=== PATIENT | female | born 1970 | race Hispanic/Latino ===

== ENCOUNTER 2019-11-08 14:36 | Emergency (ER) | payer SELFPAY ==
[~2019-11-08] VITALS: Ht 167.6 cm; Wt 90.7 kg
--- OUTSIDE RECORDS SUMMARY | 2019-11-08 14:38 | XMS REPORT | Continuity of Care Document ---
Author Author [facility] Organization [facility] Address [address] [place] [address] Phone Unavailable Care Team Providers Care Medical Reviewer Name Role Phone Unavailable Unavailable Payers Payer Name Policy Type Policy Number Effective Date Expiration Date S ource Problems This patient has no known problems. Allergies, Adverse Reactions, Alerts Allergy Name Allergy Type Status Severity Reaction(s) Onset Date Inacti ve Date Treating Clinician Comments Source No Known Allergies DA Active U 2019-04-09 00:00:00 [facility] No Known Allergies DA Active U 2017-09-30 00:00:00 [facility] Medications This patient has no known medications. Procedures This patient has no known procedures. Results This patient has no known results.
--- NOTE | 2019-11-08 14:39 | Emergency Department Note ---
History of Present Illnes History of Present Illness History of Present Illness This is a 48 year old female fever, sore throat, and diarrheal illness of 3 days duration . 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 Any updates have been documented here. Past Medical History Recent Fever: Yes Clinical Suspicion of Infectio: Yes New/Unexplained Change in Ment: No Social History Smoking Cessation: Never Smoker Alcohol Use: None Any Illegal Drug Use: No Other Last Tetanus: UTD Review of Systems Review of Systems Constitutional: Reports fever EENTM: Reports throat pain Cardiovascular: Reports no symptoms Respiratory: Reports no symptoms Gastrointestinal: Reports no symptoms Genitourinary: Reports no symptoms Musculoskeletal: Reports no symptoms Integumentary: Reports no symptoms Neurological: Reports headache Psychological: Reports no symptoms Endocrine: Reports no symptoms Hematological/Lymphatic: Reports no symptoms Physical Exam Related Data Allergies: Coded Allergies: No Known Allergies (Unverified , 12/01/12) Physical Exam CONSTITUTIONAL Constitutional: Present well-developed, Present well-nourished HENT HENT: Present normocephalic, Present atraumatic, Present oropharynx clear/moist, Present nose normal, Present tonsillar excudate (right); Absent pharynx abnormal, Absent erythema HENT L/R: Present left ext ear normal, Present right ext ear normal EYES Eyes: Reports PERRL, Reports conjunctivae normal NECK Neck: Present ROM normal PULMONARY Pulmonary: Present effort normal, Present breath sounds normal CARDIOVASCULAR Cardiovascular: Present regular rhythm, Present heart sounds normal, Present capillary refill normal, Present normal rate GASTROINTESTINAL Abdominal: Present soft, Present nontender, Present bowel sounds normal GENITOURINARY Genitourinary: Present exam deferred SKIN Skin: Present warm, Present dry MUSCULOSKELETAL Musculoskeletal: Present ROM normal NEUROLOGICAL Neurological: Present alert, Present oriented x 3, Present no gross motor or sensory deficits PSYCHOLOGICAL Psychological: Present mood/affect normal, Present judgement normal Results Laboratory Lab results reviewed: Yes Laboratory comments Rapid Strep Neg rapid Flu Neg Imaging Imaging results reviewed: Yes Impressions [place] [address] Patient Name: MADDIE HORNER MR #: [id number] : 1970 Age/Sex: 48/F Req #: [id number] Adm Physician: Ordered by: DENISE NAVARRO DO Report #: [id number] Location: ER Room/Bed: Procedure: [id number] DX/CHEST SINGLE (PORTABLE) Exam Date: 11/08/19 Exam Time: 1639 REPORT STATUS: Signed EXAMINATION: CHEST SINGLE (PORTABLE) INDICATION: ^Y ^fever ^[id number] ^1640 COMPARISON: None FINDINGS: AP view TUBES and LINES: None. LUNGS: Lungs are well inflated. Mild bilateral hilar interstitial lung markings. No lobar consolidations. PLEURA: No pleural effusion or pneumothorax. HEART AND MEDIASTINUM: The cardiomediastinal silhouette is unremarkable.. BONES AND SOFT TISSUES: No acute osseous lesion. Soft tissues are unremarkable. UPPER ABDOMEN: No free air under the diaphragm. IMPRESSION: Nonspecific bilateral hilar interstitial lung markings may reflect early atypical infection. Continue to follow-up. Signed by: Dr. Saloni Berkowitz M.D. on 11/08/2019 6:02 PM Dictated By: SALONI BERKOWITZ MD 01 Transcribed By: NEL on 11/08/191801 COPY TO: DENISE NAVARRO DO~ Assessment & Plan Medical Decision Making MDM Patient with URI symptoms. Vital signs stable. Flu, Strep negative. CXR suggestive of URI. Rx azithromycin and albuterol Assessment & Plan Final Impression: (1) URI (upper respiratory infection) Depart Disposition: HOME, SELF-nursing home Meds No Active Prescriptions or Reported Meds DENISE NAVARRO DO Nov 08, 2019 14:39
[2019-11-08] MEDS ORDERED: ACETAMINOPHEN 325 MG TAB PO STA ×2 (14:45)
[2019-11-08] MEDS ORDERED: KETOROLAC TROMETHAMINE 60 MG/2 ML VIAL IM ONE (15:00)
[2019-11-08 15:25] LABS: STREPTOCOCCUS GRP A ANTIGEN NEGATIVE (NEGATIVE)
[2019-11-08 15:34] LABS: INFLUENZAE A&B ANTIGEN (RAPID) NEGATIVE (NEGATIVE)
[2019-11-08 17:12] VITALS: BP 142/88
--- NOTE | 2019-11-08 18:05 | Diagnostic Imaging Report ---
EXAMINATION: CHEST SINGLE (PORTABLE) INDICATION: ^Y ^fever ^[id number] ^1640 COMPARISON: None FINDINGS: AP view TUBES and LINES: None. LUNGS: Lungs are well inflated. Mild bilateral hilar interstitial lung markings. No lobar consolidations. PLEURA: No pleural effusion or pneumothorax. HEART AND MEDIASTINUM: The cardiomediastinal silhouette is unremarkable.. BONES AND SOFT TISSUES: No acute osseous lesion. Soft tissues are unremarkable. UPPER ABDOMEN: No free air under the diaphragm. IMPRESSION: Nonspecific bilateral hilar interstitial lung markings may reflect early atypical infection. Continue to follow-up. Signed by: Dr. Nevaeh Walker M.D. on 11/08/2019 6:02 PM
== END 2019-11-08 17:13 | disposition home or self-care (01) ==
LOC: ER 14:36
DX: R50.9 Fever, unspecified (principal); J06.9 Acute upper respiratory infection, unspecified; F41.9 Anxiety disorder, unspecified
CPT/HCPCS: 71045; 83518; 87070; 87400; 99283

== ENCOUNTER 2020-04-12 09:29 | Emergency (ER) | payer SELFPAY ==
[~2020-04-12] VITALS: Ht 167.6 cm; Wt 90.7 kg
== END 2020-04-12 09:54 | disposition home or self-care (01) ==
LOC: ER 09:42
DX: B34.9 Viral infection, unspecified (principal); F41.9 Anxiety disorder, unspecified
CPT/HCPCS: 99282

== ENCOUNTER 2022-08-27 07:52 | Emergency (ER) | payer OTHER ==
[~2022-08-27] VITALS: Ht 167.6 cm; Wt 90.7 kg
[2022-08-27] MEDS ORDERED: ASPIRIN 81 MG CHEW TAB PO ONE (08:15)
[2022-08-27 08:18] LABS: BASOPHILS # (AUTO) 0.1 (0.0-0.1); BASOPHILS % 1.1 % (0.0-1.0); EOSINOPHILS # (AUTO) 0.4 (0.0-0.4); EOSINOPHILS % 5.3 % (0.0-6.0); HEMATOCRIT 46.9 % (34.2-44.1); LYMPHOCYTES % 36.9 % (18.0-39.1); MEAN CORPUSCULAR HEMOGLOBIN 27.8 pg (28-32); MONOCYTES # (AUTO) 0.8 (0.2-0.8); MONOCYTES % 9.6 % (4.4-11.3); NEUTROPHILS # (AUTO) 3.7 (2.1-6.9); NEUTROPHILS % 46.8 % (38.7-80.0); PLATELET COUNT 236 x10e3/uL (140-360); RED BLOOD COUNT 5.39 x10e6/uL (3.6-5.1); RED CELL DISTRIBUTION WIDTH 13.5 % (11.7-14.4)
[2022-08-27 09:10] LABS: ANION GAP 16.9 mmol/L (8-16); CALCIUM 9.1 mg/dL (8.4-10.2); CREATININE, SERUM 0.86 mg/dL (0.57-1.11); POTASSIUM 4.9 mmol/L (3.5-5.1)
[2022-08-27 09:17] LABS: CREATINE KINASE MB 2.8 ng/mL (0-5.0)
[2022-08-27 09:41] LABS: CLARITY,URINE SL CLOUDY (CLEAR); COLOR,URINE YELLOW (YELLOW); KETONES,URINE NEGATIVE (NEGATIVE); LEUKOCYTE ESTERASE ,URINE NEGATIVE (NEGATIVE); NITRITE,URINE NEGATIVE (NEGATIVE); PROTEIN,URINE DIPSTICK 1+ (NEGATIVE); URINE UROBILINOGEN 0.2 mg/dL (0.2 - 1)
[2022-08-27 09:42] LABS: BACTERIA,URINE MODERATE /HPF; EPITHELIAL CELLS,URINE MODERATE /LPF; RBC,URINE 0-5 /HPF (0-5)
[2022-08-27] MEDS ORDERED: HYDROXYZINE HCL25 MG PO (09:44)
== END 2022-08-27 10:06 | disposition home or self-care (01) ==
LOC: ER 07:56
DX: R07.9 Chest pain, unspecified (principal); F43.20 Adjustment disorder, unspecified; F41.9 Anxiety disorder, unspecified; R94.31 Abnormal electrocardiogram [ECG] [EKG]
CPT/HCPCS: 36415; 71045; 80048; 81001; 81025; 82550; 82553; 84484; 85025; 93005; 99283

== ENCOUNTER 2025-03-01 20:50 | Emergency (ER) | payer SELFPAY ==
[~2025-03-01] VITALS: Ht 167.6 cm; Wt 81.6 kg
[~2025-03-01 20:50] MED LIST: HYDROXYZINE HCL25 MG PO
[2025-03-01 21:11] VITALS: PULSE 101; RESP 16; TEMP 98.8; O2SAT 100
[2025-03-01] MEDS ORDERED: CEPHALEXIN500 MG PO (21:23)
[2025-03-01] MEDS: TETANUS/DIPHTHERIA TOX ADULT 0.5 ML SYR IM STA (21:24)
== END 2025-03-01 21:27 | disposition home or self-care (01) ==
LOC: ER 20:55
DX: S61.012A Laceration without foreign body of left thumb without damage to nail, initial encounter (principal); W26.0XXA Contact with knife, initial encounter; Y92.89 Other specified places as the place of occurrence of the external cause; G47.00 Insomnia, unspecified; F41.9 Anxiety disorder, unspecified; F32.A Depression, unspecified
CPT/HCPCS: 90471; 90714; 99283